=== PATIENT | male | born 1995 | race Caucasian/White ===

== ENCOUNTER → 2021-06-13 14:28 | Outpatient (CLI) | payer BC, SELFPAY ==
[2021-06-13 16:36] LABS: Absolute Lymphocyte Count 2.44 X10^3/uL (0.83-4.51); Absolute Neutrophil Count 6.9 X10^3/uL (2.0-7.7); Basophil# 0.04 X10^3/uL; Basophil% 0.4 % (0-1); Eosinophils% 1.9 % (0-5); Hematocrit 44.2 % (40-54); Hemoglobin 14.9 g/dL (13.0-16.5); Lymphocyte # 2.44 X10^3/ul (0.83-4.51); Lymphocyte % 23.6 % (19-41); Mean Corp Hgb Conc 33.7 g/dL (32-36); Mean Corpuscular Hgb 31.3 pg (27.0-32.0); Mean Corpuscular Volume 92.9 fL (80-94); Mean Platelet Vol. 9.6 fl (6.2-12.0); Monocyte% 6.8 % (0-10); NRBC Flagged by Analyzer 0 % (0-5); Neutrophil # 6.94 X10^3/uL (2.7-7.7); Neutrophil % 66.9 % (47-70); Platelet Count 298 K/mm3 (150-450); RBC Distribution Width CV 12.1 % (11.6-14.6); RBC Distribution Width SD 41.7 fl (35.1-43.9); Red Blood Count 4.76 M/mm3 (4.6-6.2); White Blood Count 10.4 K/mm3 (4.4-11.0)
[2021-06-13 17:12] LABS: Vitamin D,25 Hydroxy 31.2 ng/mL
[2021-06-13 17:29] LABS: ALB/GLOB Ratio 1.3 RATIO (0.9-2.4); AST(SGOT) 33 U/L (15-37); Alanine Aminotransfer ALT/SGPT 77 U/L (16-61); Albumin, Serum 4.5 g/dL (3.2-5.0); Alkaline Phosphatase 60 U/L (45-117); Anion Gap 8 (5-15); BUN 14 mg/dL (7-18); BUN/Creat Ratio 13.5 RATIO (10-20); Calcium,Total 9.5 mg/dL (8.5-10.1); Chloride 106 mmol/L (98-107); Cholesterol 205 mg/dL (200); Creatinine, Serum 1.04 mg/dL (0.70-1.30); EST Glomerular Filtration Rate 92 mL/min (>60); Est Glom Filt Rate - Afr Amer 112 mL/min (>60); Globulin 3.4 g/dL (2.2-4.2); Glucose 83 mg/dL (74-106); High Density Lipoprotein 31 mg/dL; Potassium 3.9 mmol/L (3.5-5.1); Protein, Total 7.9 g/dL (6.4-8.2); Sodium Level 141 mmol/L (136-145); Thyroid Stim Hormone (TSH) 0.92 uIU/mL (0.358-3.74); Triglycerides 402 mg/dL
== END ==
PROVIDERS: PCP Internal Medicine; Visit Provider Internal Medicine
DX: Z13.1 Encounter for screening for diabetes mellitus (principal); Z13.220 Encounter for screening for lipoid disorders; I10 Essential (primary) hypertension; E66.9 Obesity, unspecified
CPT/HCPCS: 36415; 80053; 80061; 82306; 82533; 83036; 84443; 85025

== ENCOUNTER 2022-04-27 19:18 | Emergency (ER) | payer BC, SELFPAY ==
[2022-04-27 19:19] VITALS: BP 188/132; PULSE 107; RESP 16; TEMP 36.8; O2SAT 98; BMI 36.3
--- NOTE | 2022-04-27 19:36 | EDS_ITS ---
HPI HPI - Psych History of Present Illness Chief Complaint: Mental Health Narrative Narrative: 27-year-old male presenting with anxiety and depression. He has a history of this. He states he is not currently on medication. He states he tried to do outpatient therapy but it was too much [id number]. He is currently stressed about having to move back home and he cannot afford his apartment anymore. He states that he increase the rates on it. Patient states that he feels like he does not want to live anymore. He does not have a specific plan but states he would do what ever is the most efficient. He does have guns in his home and while talking to his brother he was expressing his anxiety and depression and walked back to his room and his brother was concerned he was going to get it done. He states that this whole episode was unclear to him its kind of cloudy. He states he has had cutting behavior before but is never attempted to hurt himself further. He denies homicidal ideation. [facility] Medical History Essential hypertension Migraines Multiple allergies Home Medications acetaminophen 500 mg tablet 500 mg PO Q6H PRN Pain, Mild 06/05/21 [History Last Taken Unknown] diphenhydramine HCl 25 mg tablet (Sominex) 25 mg PO QHS 06/05/21 [History Last Taken Unknown] fluticasone propionate 50 mcg/actuation nasal spray,suspension (Flonase Allergy Relief) 1 spray intranasal DAILY 06/05/21 [History Last Taken Unknown] guaifenesin 600 mg tablet, extended release 12 hr (Mucinex) 600 mg PO Q12H PRN Allergic Symptoms 06/05/21 [History Last Taken Unknown] loratadine 10 mg tablet (Claritin) 10 mg PO DAILY PRN Allergic Symptoms 06/05/21 [History Last Taken Unknown] phenylephrine HCl 10 mg tablet (Sudafed PE) 10 mg PO ONCE PRN Allergic Reaction 06/05/21 [History Last Taken Unknown] lisinopril 10 mg tablet 10 mg PO DAILY #90 tabs 06/06/21 [Rx Last Taken Unknown] Allergy/AdvReac Type Severity Reaction Status Date / Time No Known Allergies Allergy Verified 08/20/21 08:39 Family History Mother Arthritis Blood clot in vein Father Arthritis Diabetes Grandmother Hyperlipemia CVA (cerebral vascular accident) Thyroid disorder Other COPD (chronic obstructive pulmonary disease) Hypertension Social History Smoking Status: Never smoker alcohol intake: current alcohol intake frequency: a few times a month substance use type: does not use what type of physical activity do you participate in: none ROS ROS ED Constitutional Constitutional ED: Denies chills or fever(s) Eyes Eyes: Denies change in vision ENT ENT ED: Denies rhinorrhea or sore throat Cardiovascular Cardiovascular: Denies chest pain or palpitations Respiratory/Chest Respiratory/Chest: Denies cough or dyspnea Gastrointestinal Gastrointestinal: Denies abdominal pain or constipation Genitourinary Genitourinary ED: Denies dysuria or hematuria Musculoskeletal Musculoskeletal: Denies arthralgias or back pain Integumentary Denies abscess or Abrasions Neurologic Neurologic: Denies headache(s) or paresthesias Psychiatric Psychiatric: Reports anxiety, depression and suicidal thoughts Endocrine Endocrinology: Denies polydipsia or polyphagia EXAM Physical Exam Const Vital Signs: 04/27/22 19:19 04/27/22 20:30 Temperature 98.2 F Temperature Source Temporal Pulse Rate 107 H 102 H Respiratory Rate 16 16 Blood Pressure 188/132 H 174/112 H Blood Pressure Mean 150 132 Pulse Ox 98 98 Oxygen Delivery Method Room Air Room Air Positive well nourished and unkempt General Appearance ED: unkempt and NAD; Negative for pallor HEENT Reports moist mucous membranes normocephalic and atraumatic Eyes PERRL Resp normal respiratory effort and clear to auscultation bilaterally Cardio Rate: regular rate Rhythm: regular rhythm Neuro oriented x3 and CN's II-XII intact bilaterally Sensorium / Orientation: alert Psych speech normal Appearance: unkempt Attitude: calm, evasive and guarded Activity / Motor Behavior: fidgetting and avoids eye contact Speech: normal speech Thought Content: suicidality, No homicidality and No hallucination(s) Attention / Concentration: attention grossly intact and concentration grossly intact Insight: limited Judgement: limited Skin General Skin Exam: Negative for jaundice or pallor MDM MDM MDM Narrative Medical decision making narrative: 27-year-old male presenting with depression and anxiety. He does state that he does not want to live. He is rather vague about a plan but his brother expressed concern that he has guns at home and while having an episode earlier which the patient states is very vague to him he went into his room with the guns are. He describes this timeframe as cloudy. Other than this he states that he does not have a specific plan but he would do what is the most efficient. Patient has had some cutting behavior in the past but does not admit to any suicide attempts. CBC and BMP are unremarkable. Urine drug screen positive for cannabinoids. EtOH negative. Patient medically clear for crisis to evaluate him. Patient still awaiting crisis. He will be signed out to incoming ED physician for monitoring until evaluation can be finished. Impression: 1. Depression 2. Anxiety 3. Suicidal thoughts Lab Data Attestation: I reviewed the patient's lab results. Labs: Laboratory Results - last 24 hr 04/27/22 04/27/22 04/27/22 19:48 19:57 19:57 WBC 11.2 H RBC 4.79 Hgb 15.2 Hct 44.2 MCV 92.3 MCH 31.7 MCHC 34.4 RDW Std Deviation 41.9 RDW Coeff of Pérez 12.4 Plt Count 260 MPV 9.2 Immature Gran % (Auto) 0.600 Neut % (Auto) 60.7 Lymph % (Auto) 27.7 [place] % (Auto) 7.6 Eos % (Auto) 2.8 Baso % (Auto) 0.6 Absolute Neuts (auto) 6.8 Absolute Lymphs (auto) 3.10 Nucleated RBC % 0 Sodium 141 Potassium 3.6 Chloride 110 H Carbon Dioxide 23.0 Anion Gap 8 BUN 12 Creatinine 1.24 Estim Creat Clear Calc 116.71 Est GFR (MDRD) Af Amer 91 Est GFR (MDRD) Non-Af 75 BUN/Creatinine Ratio 9.7 L Glucose 103 Calcium 9.4 Urine Opiates Screen NEGATIVE Urine Methadone Screen NEGATIVE Ur Barbiturates Screen NEGATIVE Ur Phencyclidine Scrn NEGATIVE Ur Amphetamines Screen NEGATIVE MDMA (Ecstasy) Screen NEGATIVE U Benzodiazepines Scrn NEGATIVE Urine Cocaine Screen NEGATIVE U Cannabinoids Screen POSITIVE H Ur Drug Screen Comment Ethyl Alcohol 04/27/22 19:57 WBC RBC Hgb Hct MCV MCH MCHC RDW Std Deviation RDW Coeff of Pérez Plt Count MPV Immature Gran % (Auto) Neut % (Auto) Lymph % (Auto) [place] % (Auto) Eos % (Auto) Baso % (Auto) Absolute Neuts (auto) Absolute Lymphs (auto) Nucleated RBC % Sodium Potassium Chloride Carbon Dioxide Anion Gap BUN Creatinine Estim Creat Clear Calc Est GFR (MDRD) Af Amer Est GFR (MDRD) Non-Af BUN/Creatinine Ratio Glucose Calcium Urine Opiates Screen Urine Methadone Screen Ur Barbiturates Screen Ur Phencyclidine Scrn Ur Amphetamines Screen MDMA (Ecstasy) Screen U Benzodiazepines Scrn Urine Cocaine Screen U Cannabinoids Screen Ur Drug Screen Comment Ethyl Alcohol < 3.0 Discharge Plan Triage Chief Complaint: Mental Health ED Provider: Reynaldo Snell Dx/Rx/DC Orders Prescriptions: No Action lisinopril 10 mg tablet 10 mg PO DAILY Qty: 90 1RF acetaminophen 500 mg tablet 500 mg PO Q6H PRN (Reason: Pain, Mild) diphenhydramine HCl [Sominex] 25 mg tablet 25 mg PO QHS loratadine [Claritin] 10 mg tablet 10 mg PO DAILY PRN (Reason: Allergic Symptoms) fluticasone propionate [Flonase Allergy Relief] 50 mcg/actuation spray,suspension 1 spray intranasal DAILY Rx Instructions: administer into each nostril guaifenesin [Mucinex] 600 mg tablet extended release 12hr 600 mg PO Q12H PRN (Reason: Allergic Symptoms) phenylephrine HCl [Sudafed PE] 10 mg tablet 10 mg PO ONCE PRN (Reason: Allergic Reaction) Primary Care Provider: Mónica Guzman Referrals: Mónica Guzman MD [Primary Care Provider] -
[2022-04-27 20:07] LABS: Absolute Neutrophil Count 6.8 X10^3/uL (2.0-7.7); Basophil# 0.07 X10^3/uL; Basophil% 0.6 % (0-1); Eosinophil# 0.31 X10^3/uL; Eosinophils% 2.8 % (0-5); Hematocrit 44.2 % (40-54); Hemoglobin 15.2 g/dL (13.0-16.5); Lymphocyte % 27.7 % (19-41); Mean Corp Hgb Conc 34.4 g/dL (32-36); Mean Corpuscular Hgb 31.7 pg (27.0-32.0); Mean Corpuscular Volume 92.3 fL (80-94); Mean Platelet Vol. 9.2 fl (6.2-12.0); Monocyte# 0.85 X10^3/uL; Monocyte% 7.6 % (0-10); NRBC Flagged by Analyzer 0 % (0-5); Neutrophil % 60.7 % (47-70); Platelet Count 260 K/mm3 (150-450); RBC Distribution Width CV 12.4 % (11.6-14.6); RBC Distribution Width SD 41.9 fl (35.1-43.9); Red Blood Count 4.79 M/mm3 (4.6-6.2); White Blood Count 11.2 K/mm3 (4.4-11.0)
[2022-04-27 20:20] LABS: Anion Gap 8 (5-15); BUN 12 mg/dL (7-18); BUN/Creat Ratio 9.7 RATIO (10-20); Calcium,Total 9.4 mg/dL (8.5-10.1); Chloride 110 mmol/L (98-107); Creatinine, Serum 1.24 mg/dL (0.70-1.30); EST Glomerular Filtration Rate 75 mL/min (>60); Est Glom Filt Rate - Afr Amer 91 mL/min (>60); Estimated Creatinine Clearance 116.71 ml/min; Glucose 103 mg/dL (74-106); Potassium 3.6 mmol/L (3.5-5.1); Sodium Level 141 mmol/L (136-145)
[2022-04-27 20:30] VITALS: BP 174/112; PULSE 102; RESP 16; O2SAT 98
[2022-04-27 20:30] LABS: Amphetamine Urine VISTA NEGATIVE (<1000 ng/mL); Barbiturate Urine VISTA NEGATIVE (< 200 ng/mL); Benzodiazepine Urine VISTA NEGATIVE (< 200 ng/mL); Cocaine Urine VISTA NEGATIVE (< 300 ng/mL); Ecstacy Urine VISTA NEGATIVE (< 500 ng/mL); Methadone Urine VISTA NEGATIVE (< 300 ng/mL); PCP Urine VISTA NEGATIVE (< 25 ng/mL); THC Urine VISTA POSITIVE (< 50 ng/mL); Vista UDS pH Range 5
[2022-04-27 20:42] LABS: Alcohol, Blood (Medical)-Serum < 3.0 mg/dL
--- NOTE | 2022-04-27 20:51 | CM.ED ---
Social Work Note PATO placed a call to [facility] and provided referral. PATO waiting for call back from tray worker Lavinia. PATO faxed clinicals to [facility]. Plan: Crisis to [facility] MANAGER REGISTRATION, MANAGER [employer]
--- NOTE | 2022-04-27 20:58 | ED.RN ---
CALLED [facility] AND FAXED PAPERWORK TO THEM
--- NOTE | 2022-04-27 22:22 | ED.RN ---
[facility] CALLED FOR THE PATIENT.
[2022-04-28 01:10] VITALS: PULSE 74; RESP 14; O2SAT 97
[2022-04-28 01:18] VITALS: BP 124/74; PULSE 70; RESP 14; O2SAT 97
--- NOTE | 2022-04-28 01:37 | ED.RN ---
PATIENT IS ACCEPTED AT [facility], PATIENT IS ACCEPTED UNDER DR. ALVAREZ TO THE DISCOVERY UNIT. PATIENT CANT LEAVE UNTIL 0900. NTN IS [phone]
[2022-04-28 04:38] VITALS: BP 130/74; PULSE 74; RESP 17; O2SAT 97
[2022-04-28 06:27] VITALS: RESP 15
[2022-04-28 07:00] VITALS: RESP 16
[2022-04-28 08:39] VITALS: BP 128/70; PULSE 70; RESP 17; O2SAT 98
== END 2022-04-28 08:56 ==
LOC: ED 19:36
PROVIDERS: Emergency Provider Student in an Organized Health Care Education/Training Program; PCP Internal Medicine; Visit Provider Student in an Organized Health Care Education/Training Program
DX: F32.A Depression, unspecified (principal); F41.9 Anxiety disorder, unspecified; R45.851 Suicidal ideations; I10 Essential (primary) hypertension; Z79.899 Other long term (current) drug therapy; Z91.52 Personal history of nonsuicidal self-harm
CPT/HCPCS: 80048; 80307; 82077; 85025; 87811; 99285